=== PATIENT | male | born 1995 | race Caucasian/White ===

== ENCOUNTER 2020-05-21 04:41 | Emergency (ER) | payer MEDICAID ==
[~2020-05-21] VITALS: Ht 182.9 cm; Wt 79.4 kg
[2020-05-21 05:12] VITALS: BP 136/81
[2020-05-21] MEDS ORDERED: LORAZEPAM 1 MG TABLET PO ONE (05:30)
[2020-05-21] MEDS ORDERED: LORAZEPAM 1 MG TABLET ONE (05:30)
--- NOTE | 2020-05-21 05:46 | NUR ---
PATIENT CAME TO ER BED 12 C/O ALCOHOL WITHDRAWL. PT STATES THAT HE LAST TOOK ALCOHOL ABOUT OVER 24 HOURS AGO. PATIENT ALSO ADMITS TO TAKING METH AND FENTANYL. PATIENT IS AAOX4. PATIENT AMBULATORY WITH A STEADY GAIT. NO TREMORS NOTED. NO SLURRING NOTED. PATIENT ABLE TO CARRY OWN BELONGINGS WITHOUT ASSISTANCE. CONNECTED TO THE CORNER CUTTER. BREATHING EVENLY AND UNLABORED ON ROOM AIR. NOT IN ACUTE DISTRESS.
--- NOTE | 2020-05-21 06:12 | NUR ---
AMBULATORY WITH A STEADY GAIT.
--- NOTE | 2020-05-21 06:12 | NUR ---
Patient discharged to home in stable condition. Written and verbal after care instructions given. Patient verbalizes understanding of instruction.
== END 2020-05-21 06:18 | disposition home or self-care (01) ==
LOC: ER 04:45
DX: F10.239 Alcohol dependence with withdrawal, unspecified (principal); Y90.9 Presence of alcohol in blood, level not specified